=== PATIENT | male | born 1990 | race Caucasian/White ===

== ENCOUNTER 2019-06-17 06:45 | Emergency (ER) | payer SELFPAY ==
[~2019-06-17] VITALS: Ht 160 cm; Wt 72.1 kg
[2019-06-17 06:52] VITALS: Ht 160 cm; Wt 72.1 kg
[2019-06-17 07:19] VITALS: BP 147/91
== END 2019-06-17 07:19 | disposition home or self-care (01) ==
LOC: ED 06:45
DX: H65.93 Unspecified nonsuppurative otitis media, bilateral (principal); R42 Dizziness and giddiness

== ENCOUNTER 2020-02-27 08:21 | Emergency (ER) | payer SELFPAY ==
[~2020-02-27] VITALS: Ht 160 cm; Wt 75.3 kg
[2020-02-27 08:33] VITALS: Ht 160 cm; Wt 75.3 kg
[2020-02-27 12:26] VITALS: BP 113/76
== END 2020-02-27 12:26 | disposition home or self-care (01) ==
LOC: ED 08:21
DX: U07.1 COVID-19 (principal)
CPT/HCPCS: U0003